=== PATIENT | female | born 1965 | race Caucasian/White ===

== ENCOUNTER 2016-11-26 08:29 | Emergency (ER) | payer BC ==
[~2016-11-26] VITALS: Ht 172.7 cm; Wt 68.0 kg
[2016-11-26] VITALS (7 sets, daily range): BP systolic 74–151; BP diastolic 41–90
[~2016-11-26 08:29] MED LIST: AMBIEN10 MG PO; NKM; ONDANSETRON ODT4 MG PO; PREVACID30 MG PO; RANITIDINE HCL150 MG PO; XANAX1 MG PO
[2016-11-26] MEDS ORDERED: Famotidine 20 MG/ 2ML VIAL IVP ONE (08:45)
[2016-11-26] MEDS ORDERED: HYDROmorphone 1mg/ml Carpuject IVP ONE ×2 (08:45→09:30)
[2016-11-26] MEDS ORDERED: LORazepam Inj 2mg/ml 1ml IV ONE (08:45)
[2016-11-26 08:54] LABS: BASOPHILS % (AUTO) 0.5 % (0.0-2.0); EOSINOPHILS % (AUTO) 0.3 % (0.0-3.0); MEAN CORPUSCULAR HEMOGLOBIN 32.7 PG (27.0-31.0); MEAN CORPUSCULAR HGB CONC 33.8 G/DL (32.0-36.0); MEAN CORPUSCULAR VOLUME 97 FL (80-99); MEAN PLATELET VOLUME 8.2 FL (6.5-10.1); MONOCYTES % (AUTO) 4.8 % (1.0-10.0); NEUTROPHILS % (AUTO) 83.3 % (45.0-75.0); PLATELET COUNT 308 K/UL (150-450); RED BLOOD COUNT 5.15 M/UL (4.20-5.40); RED CELL DISTRIBUTION WIDTH 10.9 % (11.6-14.8); WHITE BLOOD COUNT 11.2 K/UL (4.8-10.8)
[2016-11-26 10:04] LABS: ALANINE AMINOTRANSFERASE 13 U/L (3-33); ALBUMIN/GLOBULIN RATIO 1.9 (1.0-2.7); ANION GAP 15 (5-15); ASPARTATE AMINO TRANSFERASE 22 U/L (5-40); CALCIUM 8.9 mg/dL (8.6-10.2); CARBON DIOXIDE 25 mEQ/L (20-30); CHLORIDE 96 mEQ/L (98-107); CREATININE 0.7 mg/dL (0.5-0.9); GLOMERULAR FILTRATION RATE > 60 mL/min (>60); HEMOLYSIS 5; LIPASE 37 U/L (< 60); POTASSIUM 3.1 mEQ/L (3.4-4.9); SODIUM 136 mEQ/L (135-145); TOTAL PROTEIN 6.7 g/dL (6.6-8.7)
[2016-11-26] MEDS ORDERED: AMBIEN5 MG ORAL (12:09)
[2016-11-26] MEDS ORDERED: ZOFRAN ODT4 MG ORAL (12:09)
[2016-11-26] MEDS ORDERED: RANITIDINE HCL150 MG ORAL (12:09)
--- NOTE | 2016-11-27 07:19 | Emergency Room Report ---
History of Present Illness General Chief Complaint: Abdominal Pain Source: Patient Present Illness HPI 51-year-old female presents to ED with abdominal pain and nausea and vomiting x1 day. 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 States that her symptoms are triggered by stress and anxiety. Patient states the pain is a 10 out of 10, cramping, nonradiating. Notes nausea and vomiting. Denies diarrhea. Denies fevers or chills. Denies chest pain or shortness of breath. No other aggravating relieving factors. Denies any other associated symptoms Allergies: Coded Allergies: PENICILLINS (Verified Allergy, 06/23/12) UNKNOWN Patient History Past Medical History: other - IBS Past Surgical History: none Pertinent Family History: none Social History: Denies: alcohol use, drug use, smoking Last Menstrual Period: n/a Now: No Immunizations: UTD Reviewed Nursing Documentation: PMH: Agreed, PSxH: Agreed Nursing Documentation-PMH Past Medical History: No History, Except For Hx Cancer: No Hx Gastrointestinal Problems: Yes Hx Neurological Problems: No Hx Meningitis: Yes - BACTERIAL, APPROX 15 YEARS AGO Review of Systems All Other Systems: negative except mentioned in HPI Physical Exam Vital Signs Date Time Temp Pulse Resp B/P Pulse Ox O2 Delivery O2 Flow Rate FiO2 11/26/16 08:36 97.7 85 20 178/112 96 Room Air Sp02 EP Interpretation: reviewed, normal General Appearance: alert, GCS 15, non-toxic, moderate distress Head: normocephalic, atraumatic Eyes: bilateral eye PERRL, bilateral eye normal inspection ENT: hearing grossly normal, normal pharynx, no angioedema, normal voice Neck: full range of motion, supple/symm/no masses Respiratory: chest non-tender, lungs clear, normal breath sounds, speaking full sentences Cardiovascular #1: regular rate, rhythm, no edema Cardiovascular #2: 2+ carotid (R), 2+ carotid (L), 2+ radial (R), 2+ radial (L) , 2+ dorsalis pedis (R), 2+ dorsalis pedis (L) Gastrointestinal: normal bowel sounds, soft, non-distended, no guarding, no rebound, tenderness Rectal: deferred Genitourinary: normal inspection, no CVA tenderness Musculoskeletal: back normal, gait/station normal, normal range of motion, non- tender Neurologic: alert, oriented x3, responsive, motor strength/tone normal, sensory intact, speech normal Psychiatric: judgement/insight normal, memory normal, mood/affect normal, no suicidal/homicidal ideation Reflexes: 3+ bicep (R), 3+ bicep (L), 3+ tricep (R), 3+ tricep (L), 3+ knee (R) , 3+ knee (L) Skin: normal color, no rash, warm/dry, well hydrated Lymphatic: no adenopathy Medical Decision Making Diagnostic Impression: Primary Impression: Abdominal pain Qualified Codes: R10.84 - Generalized abdominal pain Additional Impressions: Visceral hypersensitivity syndrome Opioid dependence Qualified Codes: F11.29 - Opioid dependence with unspecified opioid-induced disorder ER Course Hospital Course 51-year-old F presents to ED with epigastric pain with N/V. differential diagnosis: gastritis, SBO, cholecystits Clinical course Patient placed on stretcher. On consumer marketing analyst. After initial history and physical I ordered labs, IV fluids, Zofran and pepcid, and dilaudid Labs - no leukocytosis, K 3.1, LFTs normal, UA unremarkable Patient on reassessment was hypotensive after pain medications. Required additional IV fluid boluses to bring her blood pressure. Patient required 2 rounds of pain medication. Requesting a third dose. Patient given multiple rounds of Zofran. Potassium repleted I explained to the patient I am uncomfortable finding her with additional pain medication. If she requires such that she will need to be admitted. Patient declined admission On CURES patient has multiple narcotic prescriptions filled. Patient has not been to the [facility] in many years I feel this is a highly complex case requiring extensive working including EKG/ Rhythm strip, Xray/CT/US, Blood/urine lab work, repeat exams while in ED, and administration of strong opiates/narcotics for pain control, admission to hospital or close patient follow up. Diagnosis - abdominal pain, visceral hypersensitivity syndrome, opioid dependence Stable and discharged to home with prescriptions for zantac, zofran, ambien. Followup with PMD. Return to ED if symptoms recur or worsen Labs Test 11/26/16 08:40 11/26/16 09:35 White Blood Count 11.2 K/UL (4.8-10.8) Red Blood Count 5.15 M/UL (4.20-5.40) Hemoglobin 16.8 G/DL (12.0-16.0) Hematocrit 49.8 % (37.0-47.0) Mean Corpuscular Volume 97 FL (80-99) Mean Corpuscular Hemoglobin 32.7 PG (27.0-31.0) Mean Corpuscular Hemoglobin Concent 33.8 G/DL (32.0-36.0) Red Cell Distribution Width 10.9 % (11.6-14.8) Platelet Count 308 K/UL (150-450) Mean Platelet Volume 8.2 FL (6.5-10.1) Neutrophils (%) (Auto) 83.3 % (45.0-75.0) Lymphocytes (%) (Auto) 11.0 % (20.0-45.0) Monocytes (%) (Auto) 4.8 % (1.0-10.0) Eosinophils (%) (Auto) 0.3 % (0.0-3.0) Basophils (%) (Auto) 0.5 % (0.0-2.0) Sodium Level 136 mEQ/L (135-145) Potassium Level 3.1 mEQ/L (3.4-4.9) Chloride Level 96 mEQ/L (98-107) Carbon Dioxide Level 25 mEQ/L (20-30) Anion Gap 15 (5-15) Blood Urea Nitrogen 14 mg/dL (7-23) Creatinine 0.7 mg/dL (0.5-0.9) Estimat Glomerular Filtration Rate > 60 mL/min (>60) Glucose Level 124 mg/dL (74-106) Calcium Level 8.9 mg/dL (8.6-10.2) Total Bilirubin 0.9 mg/dL (0.0-1.2) Aspartate Amino Transf (AST/SGOT) 22 U/L (5-40) Alanine Aminotransferase (ALT/SGPT) 13 U/L (3-33) Alkaline Phosphatase 31 U/L (35-104) Total Protein 6.7 g/dL (6.6-8.7) Albumin 4.4 g/dL (3.5-5.2) Globulin 2.3 g/dL Albumin/Globulin Ratio 1.9 (1.0-2.7) Lipase 37 U/L (< 60) Last Vital Signs Date Time Temp Pulse Resp B/P Pulse Ox O2 Delivery O2 Flow Rate FiO2 5/24/17 12:22 98.6 69 14 95/66 98 Room Air Status: improved Disposition: HOME, SELF-CARE Condition: Stable Scripts Ranitidine Hcl* (ZANTAC*) 150 Mg Tablet 150 MG ORAL TWICE A DAY, #30 TAB Prov: ERIKA ALFONSO M.D. 11/26/16 Zolpidem Tartrate* (AMBIEN*) 5 Mg Tablet 5 MG ORAL BEDTIME Y for Insomnia for 10 Days, TAB Prov: ERKIA ALFONSO M.D. 11/26/16 Ondansetron Odt* (ZOFRAN ODT*) 4 Mg Tab.rapdis 4 MG ORAL Q6H Y for Nausea & Vomiting, #30 TAB 0 Refills Prov: ERIKA ALFONSO M.D. 11/26/16 Patient Instructions: Irritable Bowel Syndrome, Adult ERIKA ALFONSO M.D. November 27, 2016 07:19
== END 2016-11-26 12:20 | disposition home or self-care (01) ==
LOC: EMR 08:48
DX: R10.9 Unspecified abdominal pain (principal); F11.20 Opioid dependence, uncomplicated; I95.2 Hypotension due to drugs; T50.995A Adverse effect of other drugs, medicaments and biological substances, initial encounter; Y92.89 Other specified places as the place of occurrence of the external cause; R11.2 Nausea with vomiting, unspecified; Z86.61 Personal history of infections of the central nervous system
CPT/HCPCS: 36415; 80053; 83690; 85025; 96360; 96361; 96374; 96375; 99284; J1170; J2405; S0028; J8499

== ENCOUNTER 2017-01-27 00:55 | Emergency (ER) | payer BC ==
[~2017-01-27] VITALS: Ht 170.2 cm; Wt 70.3 kg
[~2017-01-27 00:55] MED LIST changes: +AMBIEN5 MG ORAL; +RANITIDINE HCL150 MG ORAL; +ZOFRAN ODT4 MG ORAL
[2017-01-27 01:10] VITALS: BP 128/80
[2017-01-27] MEDS ORDERED: NORCO 5-325 TA1 EACH ORAL (01:52)
[2017-01-27 02:00] VITALS: BP 120/82
[2017-01-27] MEDS ORDERED: Norco 5mg/325mg tab ORAL ONE (02:00)
--- NOTE | 2017-01-27 10:52 | Diagnostic Imaging Report ---
Indication: PAIN Technique: 3 views of the left ankle Comparison: none Findings: No acute fractures. No dislocations. Joint spaces are preserved. Impression: Negative This agrees with the preliminary interpretation provided by the emergency room physician
--- NOTE | 2017-01-27 11:57 | Diagnostic Imaging Report ---
Indication: PAIN STATUS post fall Technique: 3 views left foot Comparison: none Findings: No acute fractures. No dislocations. Joint spaces are preserved. Impression: Negative This agrees with the preliminary interpretation provided by the emergency room physician
--- NOTE | 2017-01-29 14:27 | Emergency Room Report ---
History of Present Illness General Chief Complaint: Lower Extremity Injury Present Illness HPI Is a 52-year-old female presented after increased right ankle pain after a recent fall. Patient reports having increased pain and swelling to right ankle and foot. Patient had prior history of chronic pain. Patient stated that she been having increased pain to her right lower extremity. Patient denies any fever. She denied any numbness. The patient stated that the injury occurred yesterday. Allergies: Coded Allergies: PENICILLINS (Verified Allergy, 06/23/12) UNKNOWN Patient History Past Medical History: see triage record Reviewed Nursing Documentation: PMH: Agreed, PSxH: Agreed Nursing Documentation-PMH Hx Cancer: No Hx Gastrointestinal Problems: Yes Hx Neurological Problems: No Hx Meningitis: Yes - BACTERIAL, APPROX 15 YEARS AGO Review of Systems All Other Systems: negative except mentioned in HPI Physical Exam Vital Signs Date Time Temp Pulse Resp B/P Pulse Ox O2 Delivery O2 Flow Rate FiO2 01/27/17 00:58 98.1 95 16 128/80 97 Room Air General Appearance: well appearing, no apparent distress, alert, GCS 15, Chronically Ill Head: normocephalic, atraumatic ENT: hearing grossly normal, normal voice Neck: full range of motion, supple Respiratory: no respiratory distress, speaking full sentences Gastrointestinal: normal inspection Musculoskeletal: no calf tenderness, swelling - right foot, Neurologic: alert, oriented x3, responsive, director auto III-XII nml as tested, normal gait Psychiatric: mood/affect normal Skin: no rash Medical Decision Making Diagnostic Impression: Primary Impression: Ankle sprain ER Course Patient presented for ankle pain. Differential diagnosis included was not limited to sprain, fracture, dislocation, cellulitis, vascular insufficiency. X -ray imaging of the ankle was ordered. X-ray imaging 3 view interpreted by me showed normal bony alignment without evident fracture, soft tissue swelling was noted.The patient given prescription for pain medication. She is placed in an Eduin wrap.The CURES database was reviewed for the patient's prior prescription history.Is was given prescription for short-term narcotic pain medication due to severe pain. The patient is advised to follow up with primary care doctor in 1-2 days. Patient is advised to return if any worsening condition or if any changes in status that are concerning. Last Vital Signs Date Time Temp Pulse Resp B/P Pulse Ox O2 Delivery O2 Flow Rate FiO2 01/27/17 02:00 98.2 89 15 120/82 100 Room Air Status: improved Disposition: HOME, SELF-CARE Condition: Stable Scripts Hydrocodone Bit/Acetaminophen 5-325* (NORCO 5-325*) 1 Each Tablet 1 TAB ORAL Q6H Y for For Pain, #15 TAB 0 Refills Prov: Hernán Dunn 01/27/17 Patient Instructions: Ankle Sprain Hernán Dunn Jan 29, 2017 14:27
== END 2017-01-27 02:00 | disposition home or self-care (01) ==
LOC: EMR 01:27
DX: S93.401A Sprain of unspecified ligament of right ankle, initial encounter (principal); W19.XXXA Unspecified fall, initial encounter; Y93.9 Activity, unspecified; Y92.9 Unspecified place or not applicable; Z88.0 Allergy status to penicillin
CPT/HCPCS: 99284

== ENCOUNTER 2017-07-27 12:28 | Emergency (ER) | payer BC ==
[~2017-07-27] VITALS: Ht 172.7 cm; Wt 72.6 kg
[~2017-07-27 12:28] MED LIST changes: +NORCO 5-325 TA1 EACH ORAL
[2017-07-27] MEDS ORDERED: HYDROmorphone 1mg/ml Carpuject IVP ONE (13:15)
[2017-07-27 13:55] LABS: BASOPHILS % (AUTO) 0.6 % (0.0-2.0); EOSINOPHILS % (AUTO) 0.7 % (0.0-3.0); HEMATOCRIT 44.8 % (37.0-47.0); HEMOGLOBIN 14.9 G/DL (12.0-16.0); LYMPHOCYTES % (AUTO) 14.8 % (20.0-45.0); MEAN CORPUSCULAR VOLUME 96 FL (80-99); MONOCYTES % (AUTO) 9.9 % (1.0-10.0); PLATELET COUNT 233 K/UL (150-450); RED BLOOD COUNT 4.65 M/UL (4.20-5.40); RED CELL DISTRIBUTION WIDTH 10.7 % (11.6-14.8); WHITE BLOOD COUNT 8.5 K/UL (4.8-10.8)
[2017-07-27 14:00] LABS: ANION GAP 9 mmol/L (5-15); BLOOD UREA NITROGEN 10 mg/dL (7-18); CALCIUM 9.2 MG/DL (8.5-10.1); CARBON DIOXIDE 30 MMOL/L (21-32); CHLORIDE 96 MMOL/L (98-107); CREATININE 0.7 MG/DL (0.55-1.30); POTASSIUM 2.8 MMOL/L (3.5-5.1); SODIUM 135 MMOL/L (136-145)
[2017-07-27 14:13] LABS: ALANINE AMINOTRANSFERASE 25 U/L (12-78); ALBUMIN/GLOBULIN RATIO 1.3 (1.0-2.7); ALKALINE PHOSPHATASE 44 U/L (46-116); ASPARTATE AMINO TRANSFERASE 17 U/L (15-37); BILIRUBIN,TOTAL 1.2 MG/DL (0.2-1.0)
[2017-07-27 14:14] LABS: BILIRUBIN,DIRECT 0.3 MG/DL (0.0-0.3)
--- NOTE | 2017-07-27 14:50 | Diagnostic Imaging Report ---
Indication: Reason For Exam: H/A Technique: Continuous helical CT scanning of the head was performed without intravenous contrast material. Axial and coronal 5 mm sections were generated. Radiation dose was minimized using automated exposure control Dose: Total Dose Length Product - DLP 1425.[address] Dose Index - CTDIvol(s) 70.38 mGy. Comparison: None Findings: The ventricular system is normal in size and configuration. There is no shift of midline structures. No abnormal extra-axial fluid collections are noted. There is no evidence of intracerebral bleeding. No other abnormal high or low density areas are noted within the brain. There is no depressed calvarial fracture. No focal soft tissue swelling/scalp hematoma is identified. The mastoid air cells and visualized paranasal sinuses are clear. Imaged portions of the orbits are grossly unremarkable. Impression: No evidence of acute intracranial hemorrhage, mass effect or cortical edema. MRI may be obtained for more sensitive evaluation as clinically indicated. The CT scanner at [facility] is accredited by the [employer] and the scans are performed using protocols designed to limit radiation exposure to as low as reasonably achievable to attain images of sufficient resolution adequate for diagnostic evaluation.
--- NOTE | 2017-07-27 14:52 | Diagnostic Imaging Report ---
Indication: Weakness Technique: XRAY Chest 1v Comparison: 06/25/2012 Findings: Heart size and mediastinal contours are within normal limits given technique. There is no focal consolidation, pneumothorax or pleural effusion. Osseous structures demonstrate no acute abnormality. Impression: No radiographic evidence of acute cardiopulmonary disease.
[2017-07-27] MEDS ORDERED: Norco 5mg/325mg tab ORAL ONE (15:00)
[2017-07-27 15:24] VITALS: BP 93/58
[2017-07-27 15:37] LABS: APPEARANCE,URINE CLEAR; BILIRUBIN, URINE NEGATIVE (NEGATIVE); COLOR,URINE PALE YELLOW; GLUCOSE, URINE (UA) NEGATIVE (NEGATIVE); KETONES,URINE NEGATIVE (NEGATIVE); LEUKOCYTE ESTERASE ,URINE NEGATIVE (NEGATIVE); NITRITE,URINE NEGATIVE (NEGATIVE); PH,URINE 6.5 (4.5-8.0); PROTEIN,URINE NEGATIVE (NEGATIVE); UROBILINOGEN,URINE NORMAL MG/DL (0.0-1.0)
[2017-07-27] MEDS ORDERED: TAMIFLU75 MG ORAL (15:45)
[2017-07-27 15:58] VITALS: BP 104/78
--- NOTE | 2017-07-27 16:32 | Emergency Room Report ---
History of Present Illness General Chief Complaint: Generalized Weakness Source: Patient Present Illness HPI 52-year-old female presents ED for evaluation. at bedside states that patient has not been feeling well for the last several days. Has bodyaches, chills, feels very weak. Feels constipated. Patient states she's been taking opioids for several months now because of a foot fracture requiring surgery. Patient also has history of hypersensitivity visceral syndrome. c/o headache, nausea. Denies fevers or chills. Denies chest pain shortness of breath. Denies cough. Denies sick contacts recent travel. No other aggravating relieving factors. Denies any other associated Allergies: Coded Allergies: PENICILLINS (Verified Allergy, 06/23/12) UNKNOWN Patient History Past Medical History: other - hypersensitivty visceral syndrome Past Surgical History: none Pertinent Family History: none Social History: Denies: smoking, alcohol use, drug use Now: No Immunizations: UTD Reviewed Nursing Documentation: PMH: Agreed, PSxH: Agreed Nursing Documentation-PMH Past Medical History: No History, Except For Hx Cancer: No Hx Gastrointestinal Problems: Yes Hx Neurological Problems: No Hx Meningitis: Yes - BACTERIAL, APPROX 15 YEARS AGO Review of Systems All Other Systems: negative except mentioned in HPI Physical Exam Vital Signs Date Time Temp Pulse Resp B/P (MAP) Pulse Ox O2 Delivery O2 Flow Rate FiO2 07/27/17 12:40 98.2 78 18 134/90 97 Room Air Sp02 EP Interpretation: reviewed, normal General Appearance: no apparent distress, alert, GCS 15, non-toxic Head: normocephalic, atraumatic Eyes: bilateral eye normal inspection, bilateral eye PERRL ENT: hearing grossly normal, normal pharynx, no angioedema, normal voice Neck: full range of motion, supple, no meningismus, supple/symm/no masses Respiratory: chest non-tender, lungs clear, normal breath sounds, speaking full sentences Cardiovascular #1: regular rate, rhythm, no edema Cardiovascular #2: 2+ carotid (R), 2+ carotid (L), 2+ radial (R), 2+ radial (L) , 2+ dorsalis pedis (R), 2+ dorsalis pedis (L) Gastrointestinal: normal bowel sounds, non tender, soft, non-distended, no guarding, no rebound Rectal: deferred Genitourinary: normal inspection, no CVA tenderness Musculoskeletal: back normal, gait/station normal, normal range of motion, non- tender Neurologic: alert, oriented x3, responsive, motor strength/tone normal, sensory intact, speech normal Psychiatric: judgement/insight normal, memory normal, mood/affect normal, no suicidal/homicidal ideation Reflexes: 3+ bicep (R), 3+ bicep (L), 3+ tricep (R), 3+ tricep (L), 3+ knee (R) , 3+ knee (L) Skin: normal color, no rash, warm/dry, well hydrated Lymphatic: no adenopathy Medical Decision Making Diagnostic Impression: Primary Impression: Episode of generalized weakness Additional Impressions: Opioid dependence Qualified Codes: F11.29 - Opioid dependence with unspecified opioid-induced disorder Visceral hypersensitivity syndrome ER Course Hospital Course 52-year-old female presents to ED complaining of bodyaches, weakness, headache Differential diagnoses include: sepsis, UTI, dehydration, influenza Clinical course Patient placed on stretcher. After initial history, physical exam reveals middle aged female in no acute distress. Bilateral TM unremarkable. No pharyngeal erythema. No tonsillar exudates. No lymphadenopathy. lungs clear. I ordered labs, IV fluids, chest x-ray, pain meds, CT head Labs reviewed-no leukocytosis, hemoglobin/hematocrit stable, K 2.8, UA negative , influenza negative Chest x-ray unremarkable Patient was seen here previously for similar presentation. Patient has high opioid requirements. Previous CURES shows extensive narcotic use. I explained to patient that she is likely experiencing opioid induced constipation. Medications like Colace and magnesium citrate and enemas are not effective. need to discuss with PMD medications specifically for opioid induced constipation Patient appears to be in no distress. Speaking comfortably with . However is asking for more pain medications. I explained to patient that I cannot provide additional pain medication here nor can i provide prescriptions Diagnosis - weakness, opioid dependence, viesceral hypersensitivty syndrome Stable and discharged home. Instructed to followup with PMD. Return to ED if symptoms recur or worsen Labs Test 07/27/17 13:40 07/27/17 15:20 White Blood Count 8.5 K/UL (4.8-10.8) Red Blood Count 4.65 M/UL (4.20-5.40) Hemoglobin 14.9 G/DL (12.0-16.0) Hematocrit 44.8 % (37.0-47.0) Mean Corpuscular Volume 96 FL (80-99) Mean Corpuscular Hemoglobin 32.0 PG (27.0-31.0) Mean Corpuscular Hemoglobin Concent 33.2 G/DL (32.0-36.0) Red Cell Distribution Width 10.7 % (11.6-14.8) Platelet Count 233 K/UL (150-450) Mean Platelet Volume 8.6 FL (6.5-10.1) Neutrophils (%) (Auto) 74.0 % (45.0-75.0) Lymphocytes (%) (Auto) 14.8 % (20.0-45.0) Monocytes (%) (Auto) 9.9 % (1.0-10.0) Eosinophils (%) (Auto) 0.7 % (0.0-3.0) Basophils (%) (Auto) 0.6 % (0.0-2.0) Sodium Level 135 MMOL/L (136-145) Potassium Level 2.8 MMOL/L (3.5-5.1) Chloride Level 96 MMOL/L (98-107) Carbon Dioxide Level 30 MMOL/L (21-32) Anion Gap 9 mmol/L (5-15) Blood Urea Nitrogen 10 mg/dL (7-18) Creatinine 0.7 MG/DL (0.55-1.30) Estimat Glomerular Filtration Rate > 60 mL/min (>60) Glucose Level 102 MG/DL (74-106) Lactic Acid Level 0.90 mmol/L (0.66-2.22) Calcium Level 9.2 MG/DL (8.5-10.1) Total Bilirubin 1.2 MG/DL (0.2-1.0) Direct Bilirubin 0.3 MG/DL (0.0-0.3) Aspartate Amino Transf (AST/SGOT) 17 U/L (15-37) Alanine Aminotransferase (ALT/SGPT) 25 U/L (12-78) Alkaline Phosphatase 44 U/L (46-116) Total Protein 7.2 G/DL (6.4-8.2) Albumin 4.0 G/DL (3.4-5.0) Globulin 3.2 g/dL Albumin/Globulin Ratio 1.3 (1.0-2.7) Urine Color Pale yellow Urine Appearance Clear Urine pH 6.5 (4.5-8.0) Urine Specific White 1.005 (1.005-1.035) Urine Protein Negative (NEGATIVE) Urine Glucose (UA) Negative (NEGATIVE) Urine Ketones Negative (NEGATIVE) Urine Occult Blood Negative (NEGATIVE) Urine Nitrite Negative (NEGATIVE) Urine Bilirubin Negative (NEGATIVE) Urine Urobilinogen Normal MG/DL (0.0-1.0) Urine Leukocyte Esterase Negative (NEGATIVE) Chest X-Ray Diagnostic Results Chest X-Ray Diagnostic Results : Chest X-Ray Ordered: Yes # of Views/Limited/Complete: 1 View Indication: Other - weakness EP Interpretation: Yes Interpretation: no consolidation, no effusion, no pneumothorax, no acute cardiopulmonary disease Impression: No acute disease Electronically Signed by: Electronically signed by Gary Burt MD Last Vital Signs Date Time Temp Pulse Resp B/P (MAP) Pulse Ox O2 Delivery O2 Flow Rate FiO2 07/27/17 15:58 68 15 104/78 98 Room Air 07/27/17 15:24 98.4 Status: improved Disposition: HOME, SELF-CARE Condition: Stable Scripts Oseltamivir Phosphate (Tamiflu) 75 Mg Capsule 75 MG ORAL TWICE A DAY for 5 Days, CAP Prov: GARY BURT M.D. 07/27/17 Referrals: NOT CHOSEN IPA/,REFERRING (PCP) Patient Instructions: Influenza, Adult, [id number] GARY BURT M.D. Jul 27, 2017 16:32
== END 2017-07-27 16:02 | disposition home or self-care (01) ==
LOC: EMR 13:25
DX: R53.1 Weakness (principal); F11.20 Opioid dependence, uncomplicated; R51 Headache; Z88.0 Allergy status to penicillin
CPT/HCPCS: 36415; 70450; 71045; 80053; 81003; 82248; 83605; 85025; 86710; 96361; 96374; 96375; 99284; J1170; J2405

== ENCOUNTER 2017-07-28 20:04 | Inpatient (IN) | payer BC ==
[~2017-07-28] VITALS: Ht 172.7 cm; Wt 75.7 kg
[~2017-07-28 20:04] MED LIST changes: +TAMIFLU75 MG ORAL
[2017-07-28 20:20] VITALS: BP 168/89
[2017-07-28] MEDS ORDERED: Fleet's Enema 133ml RECTAL ONE (20:30)
--- NOTE | 2017-07-28 20:35 | Emergency Room Report ---
History of Present Illness General Chief Complaint: Abdominal Pain Source: Patient, Significant Other (ERIKA ALFONSO M.D.) Present Illness HPI 52-year-old female presents to ED for evaluation. Patient presents with abdominal pain and vomiting. Pain is a 10 out of 10, sharp, nonradiating. Patient states she is constipated and needs to have a bowel movement. Patient has been here in the past. Has history of hypersensitivity this will syndrome. Is taking chronic opioid medications for the last several months. Patient was seen here yesterday with weakness and abdominal pain and constipation. Patient was subsequently discharged. Patient was told by PMD today to come to the hospital and get admitted until she has a bowel movement. Patient notes multiple episodes of vomiting. Denies fevers or chills. Denies chest pain. No other aggravating or leading factors. Denies any other associated symptoms (ERIKA ALFONSO M.D.) Allergies: Coded Allergies: PENICILLINS (Verified Allergy, 06/23/12) UNKNOWN Patient History Past Medical History: other - hypersensitivity visceral syndrome Past Surgical History: none Pertinent Family History: none Social History: Denies: smoking, alcohol use, drug use Now: No Immunizations: UTD Reviewed Nursing Documentation: PMH: Agreed, PSxH: Agreed (ERIKA ALFONSO M.D.) Nursing Documentation-PMH Hx Cancer: No Hx Gastrointestinal Problems: Yes Hx Neurological Problems: No Hx Meningitis: Yes - BACTERIAL, APPROX 15 YEARS AGO (ERIKA ALFONSO M.D.) Review of Systems All Other Systems: negative except mentioned in HPI (ERIKA ALFONSO M.D.) Physical Exam Vital Signs Date Time Temp Pulse Resp B/P (MAP) Pulse Ox O2 Delivery O2 Flow Rate FiO2 07/28/17 20:06 98.8 64 18 168/89 96 Room Air Sp02 EP Interpretation: reviewed, normal General Appearance: alert, GCS 15, non-toxic, mild distress Head: normocephalic, atraumatic Eyes: bilateral eye normal inspection, bilateral eye PERRL ENT: hearing grossly normal, normal pharynx, no angioedema, normal voice Neck: full range of motion, supple/symm/no masses Respiratory: chest non-tender, lungs clear, normal breath sounds, speaking full sentences Cardiovascular #1: regular rate, rhythm, no edema Cardiovascular #2: 2+ carotid (R), 2+ carotid (L), 2+ radial (R), 2+ radial (L) , 2+ dorsalis pedis (R), 2+ dorsalis pedis (L) Gastrointestinal: normal bowel sounds, soft, no guarding, no rebound, tenderness Rectal: deferred Genitourinary: normal inspection, no CVA tenderness Musculoskeletal: back normal, gait/station normal, normal range of motion, non- tender Neurologic: alert, oriented x3, responsive, motor strength/tone normal, sensory intact, speech normal Psychiatric: judgement/insight normal, memory normal, anxious Reflexes: 3+ bicep (R), 3+ bicep (L), 3+ tricep (R), 3+ tricep (L), 3+ knee (R) , 3+ knee (L) Skin: normal color, no rash, warm/dry, well hydrated Lymphatic: no adenopathy (ERIKA ALFONSO M.D.) Medical Decision Making Diagnostic Impression: Primary Impression: Visceral hypersensitivity syndrome Additional Impressions: Opioid dependence Qualified Codes: F11.288 - Opioid dependence with other opioid-induced disorder Hypokalemia ER Course See above. Patient c/o pain. Toradol and ativan ordered. K is low. Potassium ordered IV. Patient presented to Dr. Emmanuel. Admit Med. Laboratory Tests Test 07/28/17 20:30 White Blood Count 8.7 K/UL (4.8-10.8) Red Blood Count 4.18 M/UL (4.20-5.40) L Hemoglobin 13.5 G/DL (12.0-16.0) Hematocrit 40.1 % (37.0-47.0) Mean Corpuscular Volume 96 FL (80-99) Mean Corpuscular Hemoglobin 32.2 PG (27.0-31.0) H Mean Corpuscular Hemoglobin Concent 33.6 G/DL (32.0-36.0) Red Cell Distribution Width 10.5 % (11.6-14.8) L Platelet Count 212 K/UL (150-450) Mean Platelet Volume 8.9 FL (6.5-10.1) Neutrophils (%) (Auto) 80.9 % (45.0-75.0) H Lymphocytes (%) (Auto) 10.7 % (20.0-45.0) L Monocytes (%) (Auto) 7.2 % (1.0-10.0) Eosinophils (%) (Auto) 0.6 % (0.0-3.0) Basophils (%) (Auto) 0.6 % (0.0-2.0) Sodium Level 137 MMOL/L (136-145) Potassium Level 3.0 MMOL/L (3.5-5.1) L Chloride Level 98 MMOL/L (98-107) Carbon Dioxide Level 28 MMOL/L (21-32) Anion Gap 11 mmol/L (5-15) Blood Urea Nitrogen 6 mg/dL (7-18) L Creatinine 0.8 MG/DL (0.55-1.30) Estimate Glomerular Filtration Rate > 60 mL/min (>60) Glucose Level 98 MG/DL (74-106) Calcium Level 8.7 MG/DL (8.5-10.1) Total Bilirubin 1.1 MG/DL (0.2-1.0) H Direct Bilirubin 0.3 MG/DL (0.0-0.3) Aspartate Amino Transferase (AST) 16 U/L (15-37) Alanine Aminotransferase (ALT) 18 U/L (12-78) Alkaline Phosphatase 46 U/L (46-116) Total Protein 7.0 G/DL (6.4-8.2) Albumin 3.9 G/DL (3.4-5.0) Globulin 3.1 g/dL Albumin/Globulin Ratio 1.3 (1.0-2.7) Lipase 102 U/L (73-393) (Antonio Lieberman M.D.) Last Vital Signs Date Time Temp Pulse Resp B/P (MAP) Pulse Ox O2 Delivery O2 Flow Rate FiO2 07/28/17 20:06 98.8 64 18 168/89 96 Room Air (ERIKA ALFONSO M.D.) Status: improved (Antonoi Lieberman M.D.) Condition: Serious ERIKA ALFONSO M.D. Jul 28, 2017 20:35 Antonio Lieberman M.D. Jul 28, 2017 21:46
[2017-07-28 20:50] LABS: BASOPHILS % (AUTO) 0.6 % (0.0-2.0); EOSINOPHILS % (AUTO) 0.6 % (0.0-3.0); HEMATOCRIT 40.1 % (37.0-47.0); HEMOGLOBIN 13.5 G/DL (12.0-16.0); LYMPHOCYTES % (AUTO) 10.7 % (20.0-45.0); MEAN CORPUSCULAR VOLUME 96 FL (80-99); MONOCYTES % (AUTO) 7.2 % (1.0-10.0); NEUTROPHILS % (AUTO) 80.9 % (45.0-75.0); PLATELET COUNT 212 K/UL (150-450); RED BLOOD COUNT 4.18 M/UL (4.20-5.40); RED CELL DISTRIBUTION WIDTH 10.5 % (11.6-14.8); WHITE BLOOD COUNT 8.7 K/UL (4.8-10.8)
[2017-07-28 20:58] LABS: ANION GAP 11 mmol/L (5-15); BLOOD UREA NITROGEN 6 mg/dL (7-18); CALCIUM 8.7 MG/DL (8.5-10.1); CARBON DIOXIDE 28 MMOL/L (21-32); CHLORIDE 98 MMOL/L (98-107); CREATININE 0.8 MG/DL (0.55-1.30); SODIUM 137 MMOL/L (136-145)
[2017-07-28 21:10] LABS: ALANINE AMINOTRANSFERASE 18 U/L (12-78); ALBUMIN 3.9 G/DL (3.4-5.0); ALBUMIN/GLOBULIN RATIO 1.3 (1.0-2.7); ALKALINE PHOSPHATASE 46 U/L (46-116); ASPARTATE AMINO TRANSFERASE 16 U/L (15-37); BILIRUBIN,TOTAL 1.1 MG/DL (0.2-1.0)
[2017-07-28 21:11] LABS: BILIRUBIN,DIRECT 0.3 MG/DL (0.0-0.3)
[2017-07-28] MEDS ORDERED: LORazepam Inj 2mg/ml 1ml IV ONE (21:45)
[2017-07-28] MEDS ORDERED: D5W w/KCl 20mEq 1,000 ML IV SCH (21:45)
[2017-07-28] MEDS ORDERED: Ketorolac 30mg Inj IV ONE (21:45)
[2017-07-28] MEDS ORDERED: D5 1/2NS w/KCl 40meq 1000ml 1,000 ML IV SCH (22:00)
[2017-07-28 22:07] VITALS: BP 162/86
[2017-07-28] MEDS ORDERED: Norco 5mg/325mg tab ORAL PRN (23:00)
[2017-07-28] MEDS ORDERED: Zolpidem 5mg tab ORAL PRN (23:00)
[2017-07-28 23:59] VITALS: BP 177/102
[2017-07-29 00:28] VITALS: BP 154/88
[2017-07-29 04:00] VITALS: BP 106/82
[2017-07-29] MEDS: HYDROcodone/Acetamin 10/325 tab ORAL PRN ×2 (04:16→10:17)
[2017-07-29 07:55] LABS: BASOPHILS % (AUTO) 0.6 % (0.0-2.0); EOSINOPHILS % (AUTO) 0.5 % (0.0-3.0); HEMATOCRIT 38.2 % (37.0-47.0); LYMPHOCYTES % (AUTO) 16.3 % (20.0-45.0); MEAN CORPUSCULAR VOLUME 97 FL (80-99); MONOCYTES % (AUTO) 7.5 % (1.0-10.0); NEUTROPHILS % (AUTO) 75.1 % (45.0-75.0); PLATELET COUNT 223 K/UL (150-450); RED BLOOD COUNT 3.95 M/UL (4.20-5.40); RED CELL DISTRIBUTION WIDTH 10.2 % (11.6-14.8); WHITE BLOOD COUNT 5.1 K/UL (4.8-10.8)
[2017-07-29 08:00] VITALS: BP 99/52
[2017-07-29 08:36] LABS: ALANINE AMINOTRANSFERASE 15 U/L (12-78); ALBUMIN 3.6 G/DL (3.4-5.0); ALBUMIN/GLOBULIN RATIO 1.1 (1.0-2.7); ALKALINE PHOSPHATASE 42 U/L (46-116); AMYLASE 33 U/L (25-115); ANION GAP 12 mmol/L (5-15); ASPARTATE AMINO TRANSFERASE 17 U/L (15-37); BILIRUBIN,TOTAL 0.8 MG/DL (0.2-1.0); BLOOD UREA NITROGEN 3 mg/dL (7-18); CALCIUM 8.8 MG/DL (8.5-10.1); CARBON DIOXIDE 26 MMOL/L (21-32); CHLORIDE 101 MMOL/L (98-107); CREATININE 0.7 MG/DL (0.55-1.30); POTASSIUM 3.3 MMOL/L (3.5-5.1); SODIUM 139 MMOL/L (136-145)
[2017-07-29] MEDS ORDERED: Milk of Magnesia 30ml Ud ORAL PRN (09:30)
[2017-07-29 12:00] VITALS: BP 127/63
[2017-07-29] MEDS: HYDROmorphone 1mg/ml Carpuject IVP PRN ×3 (12:29→20:52)
[2017-07-29 16:00] VITALS: BP 108/71
[2017-07-29 19:57] VITALS: BP 100/59
[2017-07-29] MEDS ORDERED: Bisacodyl EC 5mg tab ORAL ONE (21:00)
[2017-07-29] MEDS ORDERED: Zolpidem 5mg tab ORAL PRN (21:00)
--- NOTE | 2017-07-29 22:00 | History and Physical Report ---
DATE OF ADMISSION: 07/28/2017 REASON FOR ADMISSION: Abdominal pain and constipation. HISTORY OF PRESENT ILLNESS: The patient is a 52-year-old female with history of psychiatric issues. The patient presents with abdominal pain and vomiting. The patient with significant constipation, has not had a recent bowel movement. The patient is opioid dependent and is taking Movantik. The patient has been in the emergency room in the past. The patient has been admitted for further care and management and further stabilization. PAST MEDICAL HISTORY: Notable for chronic pain, chronic opioid dependence, history of chronic constipation, and history of anxiety. 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 MEDICATIONS: Reviewed. ALLERGIES: Reviewed. SOCIAL HISTORY: The patient does not smoke or drink. She lives with her . REVIEW OF SYSTEMS: Notable for thyroid disease and viral meningitis. PHYSICAL EXAMINATION: GENERAL: A well-developed female, somewhat anxious and tearful. VITAL SIGNS: Blood pressure 127/63, pulse 60, respirations 19, and temperature 98.1 degrees. HEENT: Negative. NECK: Supple. LUNGS: Clear. CARDIAC: S1 and S2 regular rate and rhythm. ABDOMEN: Tender specifically in the left lower quadrant with what appears to be probable stool. EXTREMITIES: No cyanosis, clubbing, or edema. NEUROLOGIC: Grossly nonfocal. LABORATORY AND DIAGNOSTIC DATA: Lab data otherwise reviewed. IMPRESSION: 1. Obstipation. 2. Chronic opioid dependence. 3. Anxiety. 4. Possibly with mild dehydration. RECOMMENDATION: Resume medications, IV hydration, laxative, GI evaluation, pain control, and hope to discharge the patient when stable. Corbin Emmanuel M.D. DR: MAREK JOB#: [id number] CC:
[2017-07-30] MEDS ORDERED: Zolpidem 5mg tab ORAL ONE (01:00)
[2017-07-30] MEDS: HYDROmorphone 1mg/ml Carpuject IVP PRN ×6 (01:03→22:02)
[2017-07-30 04:00] VITALS: BP 127/69
[2017-07-30 08:00] VITALS: BP 118/69
--- NOTE | 2017-07-30 09:06 | General Progress Note ---
Assessment/Plan Assessment/Plan 1. Obstipation. 2. Chronic opioid dependence. 3. Anxiety. 4. Possibly with mild dehydration. PLAN dc home if agreeable gi evaluation pending has pain medications at home follow up with PMD Subjective Allergies: Coded Allergies: PENICILLINS (Verified Allergy, 06/23/12) UNKNOWN Subjective care noted had multiple BMs comfortable Objective Last 24 Hour Vital Signs Date Time Temp Pulse Resp B/P (MAP) Pulse Ox O2 Delivery O2 Flow Rate FiO2 07/30/17 08:00 99.0 69 20 118/69 98 07/30/17 05:22 98.6 07/30/17 04:00 98.8 67 18 127/69 98 Room Air 07/29/17 19:57 98.6 62 18 100/59 100 Room Air 07/29/17 16:00 97.2 54 19 108/71 99 07/29/17 12:00 98.1 60 19 127/63 97 Intake and Output 07/29/17 07/30/17 19:00 07:00 Intake Total 1280 ml 2200 ml Balance 1280 ml 2200 ml Intake Oral 480 ml 2000 ml IV Total 800 ml 200 ml # Voids 4 # Bowel Movements 1 3 Height (Feet): 5 Height (Inches): 8.00 Weight (Pounds): 167 Objective WDWN NAD clear breath sounds bilaterally without rhonchi or wheeze [id number] without MRG NABS nontender at this time no HSM no CCE nonfocal JENNIFER LOPEZ Jul 30, 2017 09:06
[2017-07-30] MEDS: LORazepam Inj 2mg/ml 1ml IV PRN (10:56)
[2017-07-30 12:00] VITALS: BP 116/73
--- NOTE | 2017-07-30 14:28 | Diagnostic Imaging Report ---
Indication: Constipation Technique: Supine view of the abdomen Comparison: 06/23/2012 Findings: There is evidence of prior spinal surgery again demonstrated. Bowel gas pattern is unremarkable. No unusual masses or calcifications. No definite radiographic evidence of significant stool retention is demonstrated Impression: No acute process
[2017-07-30 16:00] VITALS: BP 111/69
[2017-07-30] MEDS: Lactulose 20gm/30ml UDC ORAL SCH (18:47)
[2017-07-30 20:00] VITALS: BP 117/75
[2017-07-30] MEDS ORDERED: Zolpidem 5mg tab ORAL PRN (21:00)
--- NOTE | 2017-07-30 22:53 | General Progress Note ---
Assessment/Plan Assessment/Plan GI Consult Dictated Opioid induced constipation Good candidate for intermediate Movantik No stool impaction on rectal exam Had BM today with laxative OK for d/c from GI standpoint Advised to f/u for outpatient colonoscopy Thank you Anant Mathew MD Subjective Allergies: Coded Allergies: PENICILLINS (Verified Allergy, 06/23/12) UNKNOWN Objective Last 24 Hour Vital Signs Date Time Temp Pulse Resp B/P (MAP) Pulse Ox O2 Delivery O2 Flow Rate FiO2 07/30/17 16:00 98.6 68 20 111/69 95 07/30/17 12:00 99.9 73 20 116/73 97 07/30/17 08:00 99.0 69 20 118/69 98 07/30/17 05:22 98.6 07/30/17 04:00 98.8 67 18 127/69 98 Room Air Intake and Output 07/29/17 07/30/17 19:00 07:00 Intake Total 1280 ml 2200 ml Balance 1280 ml 2200 ml Intake Oral 480 ml 2000 ml IV Total 800 ml 200 ml # Voids 4 # Bowel Movements 1 3 Height (Feet): 5 Height (Inches): 8.00 Weight (Pounds): 167 ANANT MATHEW Jul 30, 2017 22:53
[2017-07-31] VITALS: BP 106/71
[2017-07-31] MEDS: LORazepam Inj 2mg/ml 1ml IV PRN ×3 (01:20→08:35)
--- NOTE | 2017-07-31 01:30 | Consultation ---
DATE OF CONSULTATION: 07/30/2017 GASTROENTEROLOGY CONSULTATION CONSULTING PHYSICIAN: Anant Mathew M.D. REFERRING PHYSICIAN: Corbin Emmanuel M.D. CHIEF COMPLAINT: I was asked to see this patient by Dr. Corbin Emmanuel for evaluation of constipation. HISTORY OF PRESENT ILLNESS: The patient is a 52-year-old white woman, who underwent two recent foot surgeries. She is now on high dose of the OxyContin for pain and she has developed constipation. She states she has not had a bowel movement for 10 days and appears uncomfortable. She was placed on the Movantik over the last few days with some samples as an outpatient, but this has not worked well yet. She was given enema without success. The suppository was given and a very small pebble-like bowel movement came out. She subsequently received some p.o. laxatives and half a cup of liquid material coming out of the rectum subsequent to that. The patient has had a previous history of narcotic-induced constipation. She says her last colonoscopy was about 5 years ago, and she had a polyp and was told to have another one in 5 years. PAST MEDICAL HISTORY: History of chronic pain, opioid dependence, constipation, anxiety, visceral hypersensitivity, and history of spinal meningitis x2. FAMILY HISTORY: Positive for cervical cancer in mother. SOCIAL HISTORY: The patient is . She has 1 son. She is not working. MEDICATIONS: See chart for details. The outpatient medications include lorazepam, Ambien, Neurontin, and Lamictal. REVIEW OF SYSTEMS: Otherwise negative. PHYSICAL EXAMINATION: GENERAL: A well-developed, well-nourished white woman, seen in her room with the nurse at bedside during the entire examination. HEENT: Normocephalic and atraumatic. Sclerae anicteric. NECK: Supple. Chest clear to auscultation. CARDIOVASCULAR: Revealed regular rate. ABDOMEN: Soft with good bowel sounds. There is no tenderness. EXTREMITIES: N edema. RECTAL: Exam with the nurse present showed only a few small marble like hard stools, but otherwise no rectal stool impaction. ASSESSMENT: The patient has chronic constipation, which has worsened with narcotics. I did not see any evidence of rectal stool impaction and the patient's abdomen is very soft and nondistended. Therefore, a significant degree of fecal loading is unlikely. A KUB can be done to evaluate the abdominal stool and also oral laxative will be given to wait for the result. This patient will be a good candidate for long-term Movantik to help with her bowel movements. In addition, the patient was advised to follow up as an outpatient for colonoscopy. Should the patient be stable with some bowel movement overnight, then she can be evaluated for possible discharge planning tomorrow. RECOMMENDATIONS: Per above discussion and per orders written in the chart. Thank you for asking me to participate in the care of this patient. Anant Mathew M.D. DR: VALERIA JOB#: [id number] CC: JESUSITA
[2017-07-31] MEDS: HYDROmorphone 1mg/ml Carpuject IVP PRN ×2 (02:54→09:44)
[2017-07-31 04:57] VITALS: BP 109/72
[2017-07-31 08:00] VITALS: BP 118/76
[2017-07-31] MEDS: Lactulose 20gm/30ml UDC ORAL SCH (08:35)
--- NOTE | 2017-08-03 11:53 | Discharge Summary ---
Discharge Summary Hospital Course Date of Admission Jul 28, 2017 at 20:57 Date of Discharge Jul 31, 2017 at 11:00 Admitting Diagnosis intractable abd pain/vomiting, constipation HPI Annalee Leonardo is a 52 year old female who was admitted on Jul 28, 2017 at 20:57 for Intractable Abdominal Pain/Vomiting/Constipation Hospital Course dc summary #[id number] Discharge Medications Continued Medications: Alprazolam* (Xanax*) 1 Mg Tablet 1 TAB PO TID, #15 TAB Take 1 tablet by mouth 3 times a day as needed for anxiety. Hydrocodone Bit/Acetaminophen 5-325* ([place] 5-325*) 1 Each Tablet 1 TAB ORAL Q6H PRN for For Pain, #15 TAB 0 Refills Lansoprazole* (Prevacid*) 30 Mg Capsule.dr 30 MG PO DAILY, #10 CAP Take 1 capsule by mouth every day. Ondansetron Odt* (Zofran Odt*) 4 Mg Tab.rapdis 4 MG ORAL Q6H PRN for Nausea & Vomiting, #30 TAB 0 Refills Ranitidine Hcl* (Zantac*) 150 Mg Tablet 150 MG ORAL TWICE A DAY, #30 TAB Zolpidem Tartrate* (Ambien*) 5 Mg Tablet 5 MG ORAL BEDTIME PRN for Insomnia for 10 Days, TAB Discontinued Medications: No Known Medications* (NKM - No Known Medications*) . 0 . Ondansetron Odt* (Zofran Odt*) 4 Mg Tab.rapdis 4 MG PO Q8H, #10 TAB Oseltamivir Phosphate (Tamiflu) 75 Mg Capsule 75 MG ORAL TWICE A DAY for 5 Days, CAP Ranitidine Hcl* (Zantac*) 150 Mg Tablet 150 MG PO BID Zolpidem Tartrate* (Ambien*) 10 Mg Tablet 10 MG PO HS Discharge Condition Upon Discharge: stable Discharge Disposition Patient was discharged to Home (01) Discharge Diagnoses: Discharge Instructions Discharge Instructions Special Instructions I have been assigned to complete a D/C Summary on this account. I was not involved in the patient management Kaykay Elam NP (Vanchtein) Aug 03, 2017 11:52
--- NOTE | 2017-08-04 04:15 | Discharge Summary 2 SIG ---
DATE OF ADMISSION: 07/28/2017 DATE OF DISCHARGE: 07/31/2017 REASON FOR ADMISSION: 52-year-old female with past medical history of anxiety, chronic opioid dependency, and pain as well as the hypersensitivity visceral syndrome and psychiatric issues, presented with abdominal pain and vomiting. The patient was seen in the emergency room in the past. Vital signs were stable. Potassium low - 3.0 which was replaced in ED, otherwise laboratory work was unremarkable. No leukocytosis. Stable hemoglobin and hematocrit. Stable electrolytes, renal parameters, LFT, and lipase. The patient was admitted for further care, management, and stabilization with diagnosis of chronic constipation, chronic opioid dependency, possible mild dehydration, hypokalemia, and anxiety. HOSPITAL COURSE: The patient was admitted. The patient was started on the IV fluids. Intensive bowel regimen was instituted. GI evaluation requested. Pain management implemented. Antiemetic provided as needed. Home medications were resumed. GI had seen and evaluated the patient. Abdominal exam was unremarkable. KUB revealed no evidence of significant stool retention. According to GI, the patient was a good candidate for Movantik. He also recommended GI prophylaxis and outpatient followup for colonoscopy. The patient tolerated diet, had bowel movement, pain free and was stable for discharge. FINAL DIAGNOSES: 1. Chronic constipation. 2. Chronic opioid dependency. 3. Possible mild dehydration, resolved. 4. Hypokalemia. 5. Anxiety. DISCHARGE MEDICATIONS: See medication reconciliation list. DISCHARGE INSTRUCTIONS: The patient was discharged home. Follow up with primary medical doctor. Follow up with GI for colonoscopy as advised. Corbin Emmanuel M.D. I have been assigned to dictate discharge summary on this account and I was not involved in the patient's management. Kaykay Elam (Vanchtein) N.P. DR: INGRID JOB#: [id number] CC: JESUSITA
== END 2017-07-31 11:00 | disposition home or self-care (01) | DRG 392 ==
LOC: EMR 20:15 → 4W 20:57 → EDBEDREQ 21:10 → 4W 07-29 09:25
DX: K59.03 Drug induced constipation (principal); F11.20 Opioid dependence, uncomplicated; F41.9 Anxiety disorder, unspecified; G89.29 Other chronic pain; T40.2X5A Adverse effect of other opioids, initial encounter; Z88.0 Allergy status to penicillin; E86.0 Dehydration; E87.6 Hypokalemia
CPT/HCPCS: 36415; 74018; 80053; 82150; 82248; 83690; 85025; 99285; J2405

== ENCOUNTER 2018-06-02 17:57 | Emergency (ER) | payer BC ==
[~2018-06-02] VITALS: Ht 172.7 cm; Wt 72.6 kg
[2018-06-02] MEDS ORDERED: Ketorolac 30mg Inj IM ONE (18:45)
--- NOTE | 2018-06-02 18:47 | Emergency Room Report ---
History of Present Illness General Chief Complaint: Headache Source: Patient Present Illness HPI 53-year-old female patient presents ER complaining of headache for the past 10 days. Reports headache is similar 10 sharp pain. Reports pain moves "all over her head", states that is currently in her bilateral ears and posterior head. Reports pain in neck the past day. Reports worse headache of life, reports history of migraine, states this "feels different". Reports history of bacterial and viral meningitis. denies fever, chest pain, shortness of breath, cough, allergies. reports took [place] yesterday for pain symptoms, also states took Benadryl and Zofran prior to arrival at ER.. Reports nausea during this time. Denies vomiting. Denies acute injury or trauma. Denies phonophobia or photophobia. Reports feels like "an ice pick is in my ear". denies syncope. denies vision loss. reports history of anxiety. States had a nervous breakdown last year at [facility]. Reports takes Motrin for anxiety symptoms. denies anxiety symptoms at this time. Denies nasal congestion or rhinorrhea. Denies eye pain. Allergies: Coded Allergies: PENICILLINS (Verified Allergy, 06/23/12) UNKNOWN Patient History Past Medical History: see triage record Now: No Reviewed Nursing Documentation: PMH: Agreed Nursing Documentation-PMH Hx Cancer: No Hx Gastrointestinal Problems: Yes Hx Neurological Problems: No Hx Meningitis: Yes - BACTERIAL, APPROX 15 YEARS AGO Review of Systems All Other Systems: negative except mentioned in HPI Physical Exam Vital Signs Date Time Temp Pulse Resp B/P (MAP) Pulse Ox O2 Delivery O2 Flow Rate FiO2 06/02/18 18:10 98.8 94 18 127/84 96 Room Air Sp02 EP Interpretation: reviewed, normal General Appearance: well appearing, no apparent distress, alert, GCS 15, non- toxic Head: normocephalic, atraumatic, other - no maxilary or frontal sinus TTP bilaterally Eyes: bilateral eye normal inspection, bilateral eye PERRL, bilateral eye EOMI , bilateral eye other - no nystagmus ENT: hearing grossly normal, normal pharynx, no angioedema, normal voice, TMs + canals normal, uvula midline, moist mucus membranes Neck: full range of motion Respiratory: lungs clear, normal breath sounds, no rhonchi, no respiratory distress, no accessory muscle use, no wheezing, speaking full sentences Cardiovascular #1: regular rate, rhythm, no edema Gastrointestinal: non tender, soft, no mass, non-distended, no guarding, no rebound Genitourinary: no CVA tenderness Musculoskeletal: back normal, digits/nails normal, gait/station normal, normal range of motion, non-tender Neurologic: alert, oriented x3, responsive, fruit cutter III-XII nml as tested, motor strength/tone normal, SLR negative, sensory intact, cerebellar normal, normal gait, speech normal, other - negative Kernig, negative Brudzinski Psychiatric: mood/affect normal Skin: no rash Lymphatic: no adenopathy Medical Decision Making PA Attestation Dr. Hillman is my supervising Physician whom patient management has been discussed with. Diagnostic Impression: Primary Impression: Headache ER Course Pt presents to ED c/o headache x6 days. DDX considered but are not limited to migraine, cluster ROSEN, tension ROESN, meningitis, ICH, meningitis, HTN, SAH, ICH, UTI, labyrinthitis, Mnire's, neoplasm, anxiety, otitis media, otitis externa, sinusitis. patient afebrile, negative Kernig, negative Brudzinski, low suspicion for meningitis. VITAL SIGNS are WNL, patient is afebrile ordered Reglan, Toradol. ER COURSE: vital signs stable, patient afebrile, physical exam benign, does not require labs at this time. MRI normal, negative for acute disease, SAH, neoplasm. UA negative for infection, low suspicion for UTI. Patient resting comfortably in bed, nontoxic appearing, smiling and laughing, symptoms improved on the ER, okay for outpatient treatment. Ambulating independently without difficulty. ER precautions given. Follow-up with primary care provider and discuss from neurology. Provided contact information for neurologist. Drink plenty of fluids. Avoid excessive eye stimulation. discharge patient home with Reglan medication, follow up with neurologist to discuss further treatment and evaluation of headache symptoms. DISCHARGE: -Rx provided Tylenol Rx provided for Reglan At this time pt is stable for d/c to home. Patient is resting comfortably, in no acute distress, nontoxic appearing, talking and smiling. Will provide with patient care instructions and any necessary prescriptions. Patient to take medication as instructed. Care plan and follow-up instructions provided. Patient questions asked and answered. Patient instructed to follow-up with primary care provider in the next 3 days and discuss further referral with PCP to neurologist. ER precautions given. Patient instructed to return to ER immediately for any new or worsening of symptoms including but not limited to fever, neck stiffness , vision changes, and neurological symptoms. - Please note that this Emergency Department Report was dictated using [employer] specialist technology software, occasionally this can lead to erroneous entry secondary to interpretation by the dictation equipment. Labs Test 06/02/18 19:50 Urine Color Pale yellow Urine Appearance Clear Urine pH 5 (4.5-8.0) Urine Specific [place] 1.010 (1.005-1.035) Urine Protein Negative (NEGATIVE) Urine Glucose (UA) Negative (NEGATIVE) Urine Ketones Negative (NEGATIVE) Urine Blood Negative (NEGATIVE) Urine Nitrite Negative (NEGATIVE) Urine Bilirubin Negative (NEGATIVE) Urine Urobilinogen Normal MG/DL (0.0-1.0) Urine Leukocyte Esterase Negative (NEGATIVE) CT/MRI/US Diagnostic Results CT/MRI/US Diagnostic Results : Imaging Test Ordered: MRI brain Impression normal Last Vital Signs Date Time Temp Pulse Resp B/P (MAP) Pulse Ox O2 Delivery O2 Flow Rate FiO2 06/02/18 18:10 98.8 94 18 127/84 96 Room Air Status: improved Disposition: HOME, SELF-CARE Condition: Stable Scripts Acetaminophen* (TYLENOL EXTRA STRENGTH*) 500 Mg Tablet 500 MG ORAL Q6H PRN for Mild Pain/Temp > 100.5, #30 TAB 0 Refills Prov: Mal Mendoza 06/02/18 Metoclopramide Hcl* (REGLAN*) 10 Mg Tablet 10 MG ORAL DAILY, #15 TAB Prov: Mal Mendoza 06/02/18 Patient Instructions: General Headache Without Cause Additional Instructions: Followup with primary care provider in 3 -5 days. Contact insurance to establish care. Follow with neurology for further evaluation and treatment of headache symptoms. Discuss further treatment and referral. Take medications as directed. Patient questions asked and answered. ER precautions given, patient instructed to return to ER immediately for any new or worsening of symptoms. Mal Mendoza Jun 02, 2018 18:47
[2018-06-02 19:10] VITALS: BP 137/78
[2018-06-02 19:59] LABS: APPEARANCE,URINE CLEAR; BILIRUBIN, URINE NEGATIVE (NEGATIVE); COLOR,URINE PALE YELLOW; GLUCOSE, URINE (UA) NEGATIVE (NEGATIVE); KETONES,URINE NEGATIVE (NEGATIVE); LEUKOCYTE ESTERASE ,URINE NEGATIVE (NEGATIVE); NITRITE,URINE NEGATIVE (NEGATIVE); PH,URINE 5 (4.5-8.0); PROTEIN,URINE NEGATIVE (NEGATIVE); UROBILINOGEN,URINE NORMAL MG/DL (0.0-1.0)
[2018-06-02 20:40] VITALS: BP 124/71
[2018-06-02] MEDS ORDERED: REGLAN10 MG ORAL (20:40)
[2018-06-02] MEDS ORDERED: TYLENOL EXTRA500 MG ORAL (20:40)
[2018-06-02 20:50] VITALS: BP 124/71
--- NOTE | 2018-06-03 08:58 | Diagnostic Imaging Report ---
Indication: Headache, vertigo, dizziness, bilateral ear pain Technique: sagittal T1 fast spin echo, axial T1 FLAIR, axial T2 FLAIR, axial T2 FS PROPELLER, axial T2* GRE, axial diffusion weighted images. ADC and exponential ADC maps generated Comparison: And CT dated 07/27/2017 Findings: No abnormal areas of restricted diffusion to suggest acute infarction. No acute hemorrhage or edema. No mass effect nor midline shift. The vascular flow voids are preserved.. Normal size ventricles and extra axial CSF spaces. Visualized orbits and sinuses are unremarkable. Impression: Negative This agrees with the preliminary interpretation provided overnight by Dr. Ga
== END 2018-06-02 20:58 | disposition home or self-care (01) ==
LOC: EMR 19:46
DX: R51 Headache (principal); Z88.0 Allergy status to penicillin
CPT/HCPCS: 70551; 81003; 96372; 99284; J1885

== ENCOUNTER 2018-10-08 19:30 | Inpatient (IN) | payer BC ==
[~2018-10-08] VITALS: Ht 172.7 cm; Wt 74.8 kg
[~2018-10-08 19:30] MED LIST changes: +REGLAN10 MG ORAL; +TYLENOL EXTRA500 MG ORAL
[2018-10-08 20:00] VITALS: BP 103/66
--- NOTE | 2018-10-08 20:04 | NUR ---
ED Nurse Note: patient walked in with a family member, complaining of left lower foot pain. Per patient she saw her Dr this Thursday and he told her that everything is OK. Since yesterday night patient is having severe pain 10/10, redness, and swelling, she can barely step on her foot. AAO x4, VSS at this time, skin is dry, intact, warm to touch.
[2018-10-08] MEDS ORDERED: HYDROmorphone 1mg/ml Carpuject IVP ONE ×2 (20:30→22:00)
[2018-10-08] MEDS ORDERED: HYDROcodone/Acetamin 5/325 tab ORAL ONE (20:30)
[2018-10-08 21:27] LABS: ANION GAP 12 mmol/L (5-15); BLOOD UREA NITROGEN 14 mg/dL (7-18); CALCIUM 8.6 MG/DL (8.5-10.1); CARBON DIOXIDE 25 MMOL/L (21-32); CHLORIDE 98 MMOL/L (98-107); CREATININE 0.8 MG/DL (0.55-1.30); POTASSIUM 4.1 MMOL/L (3.5-5.1); SODIUM 135 MMOL/L (136-145)
[2018-10-08 21:32] LABS: ALANINE AMINOTRANSFERASE 17 U/L (12-78); ALBUMIN 4.2 G/DL (3.4-5.0); ALBUMIN/GLOBULIN RATIO 1.3 (1.0-2.7); ALKALINE PHOSPHATASE 56 U/L (46-116); ASPARTATE AMINO TRANSFERASE 12 U/L (15-37); BILIRUBIN,TOTAL 0.5 MG/DL (0.2-1.0)
[2018-10-08] MEDS ORDERED: Vancomycin 1 GM in NS 275 ML IVPB ONE (21:45)
[2018-10-08] MEDS ORDERED: Zosyn 2.25gm inj IV ONE (21:45)
[2018-10-08 21:50] LABS: BASOPHILS % (AUTO) 0.8 % (0.0-2.0); EOSINOPHILS % (AUTO) 0.6 % (0.0-3.0); HEMATOCRIT 35.2 % (37.0-47.0); HEMOGLOBIN 12.1 G/DL (12.0-16.0); LYMPHOCYTES % (AUTO) 10.4 % (20.0-45.0); MEAN CORPUSCULAR VOLUME 99 FL (80-99); MONOCYTES % (AUTO) 8.3 % (1.0-10.0); PLATELET COUNT 157 K/UL (150-450); RED BLOOD COUNT 3.56 M/UL (4.20-5.40); RED CELL DISTRIBUTION WIDTH 10.7 % (11.6-14.8); WHITE BLOOD COUNT 8.6 K/UL (4.8-10.8)
--- NOTE | 2018-10-08 21:51 | Emergency Room Report ---
History of Present Illness General Chief Complaint: Pain Source: Patient (Mal Mendoza) Present Illness HPI 53-year-old female patient presents the ER complaining of left foot pain for the past day. Reports pain and swelling her left foot. Reports history of ankle surgery 1 month ago to repair torn ligaments and tendons and a fractured bone in her fifth Metatarsal. Reports had the sutures taken out on Thursday and told that it was healing properly. 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 Reports that that is when the pain and swelling began. Reports mild drainage from her surgical incision site. Denies fever, chest pain, shortness of breath. Reports is taking [place] for relief of pain symptoms, states has not helped to alleviate the pain. Reports pain with ambulation. Denies other aggravating or relieving factors. (Mal Mendoza) Allergies: Coded Allergies: PENICILLINS (Verified Allergy, 06/23/12) UNKNOWN Patient History Past Medical History: see triage record Last Menstrual Period: NONE Now: No Reviewed Nursing Documentation: PMH: Agreed; PSxH: Agreed (Mal Mendoza) Nursing Documentation-PMH Hx Cancer: No Hx Gastrointestinal Problems: Yes Hx Neurological Problems: Yes - meningitis (bacterial and viral) Hx Meningitis: Yes - BACTERIAL, APPROX 15 YEARS AGO (Mal Mendoza) Review of Systems All Other Systems: negative except mentioned in HPI (Mal Mendoza) Physical Exam Vital Signs Date Time Temp Pulse Resp B/P (MAP) Pulse Ox O2 Delivery O2 Flow Rate FiO2 10/08/18 19:39 99.5 114 16 103/66 96 Room Air Sp02 EP Interpretation: reviewed, normal General Appearance: well appearing, no apparent distress, alert, GCS 15, non- toxic Head: normocephalic, atraumatic Eyes: bilateral eye normal inspection, bilateral eye PERRL ENT: hearing grossly normal, normal pharynx, no angioedema, normal voice, uvula midline, moist mucus membranes Neck: full range of motion Respiratory: lungs clear, normal breath sounds, no rhonchi, no respiratory distress, no accessory muscle use, no wheezing, speaking full sentences Cardiovascular #1: regular rate, rhythm, no edema Cardiovascular #2: 2+ dorsalis pedis (R), 2+ dorsalis pedis (L) Musculoskeletal: back normal, digits/nails normal, gait/station normal, decreased range of motion - Secondary to pain, swelling, other - Cap refill less than 2 seconds, pain with movement of ankle joints, warmth to touch, tender Neurologic: alert, oriented x3, responsive, motor strength/tone normal, sensory intact Skin: no rash, other - Surgical incision noted on left lateral ankle, scabbing noted, pus draining from incision site, no bleeding (Mal Mendoza) Medical Decision Making PA Attestation Dr. Concepcion is my supervising Physician whom patient management has been discussed with. (Mal Mendoza) Diagnostic Impression: Primary Impression: Septic joint ER Course Pt. presents to the ED c/o left ankle pain and swelling. Ddx considered but are not limited to fracture, sprain, strain, contusion, dislocation, septic joint. Soft compartments, no pulselessness, no pallor, no paresthesias, low suspicion for compartment syndrome at this time. Vital signs: are WNL, pt. is afebrile Ordered X-ray and pain medication. ER COURSE Provided with Dilaudid pain medication. Physical exam consistent with likely septic joint, will order labs and admit patient. Ordered Zosyn and Rocephin to cover for possible infection. An X-ray of the left ankle shows no evidence of fracture or dislocation, fixation hardware noted, lateral ankle soft tissue swelling. CBC shows no elevation WBCs however left shift noted CMP unremarkable ESR WNL CRP elevated Spoke with patient's surgeon Dr. Tony Jim who operated on her one month ago , states that he would like her to be admitted to his service at [facility] where he has privileges. Attempting to get patient transferred to [facility]. Discussed patient care with my supervising physician physician Dr. Concepcion who agrees with assessment and treatment plan. - Please note that this Emergency Department Report was dictated using motifyrehabilitation program coordinator technology software, occasionally this can lead to erroneous entry secondary to interpretation by the dictation equipment. (Mal Mendoza) ER Course Patient signout to me. She had ankle surgery last month and now with possible infection. She was to be transferred to [facility] but they were no beds. She will be admitted here. I contacted Dr. Emmanuel for admission. (Hayden Huffman MD) Other X-Ray Diagnostic Results Other X-Ray Diagnostic Results : X-Ray ordered: Left ankle # of Views/Limited Vs Complete: 3 View Indication: Pain EP Interpretation: Yes PA Xray: Interpretation reviewed, by supervising MD, and agrees with findings. Interpretation: no dislocation, no fractures, other - Lateral ankle soft tissue swelling Impression: Other - Soft tissue swelling PA Scribe Text Tye Mendoza PA-C (Mal Mendoza P.A.) Last Vital Signs Date Time Temp Pulse Resp B/P (MAP) Pulse Ox O2 Delivery O2 Flow Rate FiO2 10/08/18 20:00 99.5 72 18 103/66 98 Room Air (Mal Mendoza P.A.) Disposition: ADMITTED INPATIENT Condition: Serious Referrals: NOT CHOSEN IPA/,REFERRING (PCP) Mal Mendoza P.Lisa Oct 08, 2018 21:51 Hayden Huffman MD Oct 09, 2018 01:03
[2018-10-08] MEDS ORDERED: cefTRIAXone 1 GM in NS 55 ML IVPB ONE (22:00)
--- NOTE | 2018-10-08 22:22 | NUR ---
S[poke with Helen at [facility], face sheet and dictation faxed to [phone] as requested. Helen will call me back with Room assignment.
[2018-10-09] MEDS ORDERED: Morphine Sulfate 4mg/ml Inj (IV USE ONLY) IVP PRN (01:15)
[2018-10-09] MEDS ORDERED: Ketorolac 30mg Inj IV PRN (01:15)
--- NOTE | 2018-10-09 01:54 | NUR ---
ED Nurse Note: Patient was admited to Med Surg. AAO x4, VSS at this time. Patient was transfered by ACLS protocol. All belongings were taken with the patient.
--- NOTE | 2018-10-09 02:00 | NUR ---
NURSE NOTES: Pt received awake, alert X 4, able to make needs known, c/o pain in her left foot, VS98.1, 89HR, 19rr, 110/65, 94 O2 with a pain level of 10, will contact MD for admission orders and give pain medication. Pt with belongings, signed the sheet stating she would keep her adler and jewelry at bedside.
--- NOTE | 2018-10-09 03:00 | NUR ---
NURSE NOTES: Left voicemail for Dr. Emmanuel to receive admission orders. Awaiting call back
[2018-10-09 04:00] VITALS: BP 120/72
[2018-10-09] MEDS ORDERED: Milk of Magnesia 30ml Ud ORAL PRN (06:15)
[2018-10-09] MEDS ORDERED: Zolpidem 5mg tab ORAL PRN (06:15)
[2018-10-09] MEDS ORDERED: BLISOVI 24 FE1 EACH PO (06:36)
[2018-10-09] MEDS ORDERED: LAMOTRIGINE200 MG PO (06:36)
[2018-10-09] MEDS ORDERED: chantix (06:36)
[2018-10-09] MEDS ORDERED: AMBIEN10 M1 ORAL (06:36)
[2018-10-09] MEDS ORDERED: valtrex (06:36)
[2018-10-09] MEDS ORDERED: ativan (06:36)
--- NOTE | 2018-10-09 07:15 | NUR ---
NURSE NOTES: Received orders from Dr. Emmanuel and input them in the system.
--- NOTE | 2018-10-09 07:15 | NUR ---
HAND-OFF: Report given to KAELYN Gonzalez.
[2018-10-09 08:00] VITALS: BP 92/69
[2018-10-09] MEDS ORDERED: HYDROcodone/Acetamin 5/325 tab ORAL PRN (08:30)
[2018-10-09] MEDS: HYDROmorphone 1mg/ml Carpuject IVP PRN ×3 (08:56→16:15)
[2018-10-09] MEDS ORDERED: Piperacillin/Tazobactam 3.375 GM in NS 110 ML IVPB SCH (09:00)
[2018-10-09] MEDS: Heparin 5000 units/ml inj SUBQ SCH ×2 (09:07→22:05)
[2018-10-09] MEDS: Vancomycin 1gm/D5W 275ml IVPB SCH ×4 (10:03→21:55)
--- NOTE | 2018-10-09 10:15 | NUR ---
NURSE NOTES: PT AXOX4, STATES PAIN SHARP CONSTANT PAIN 10/10 OF LEFT ANKLE. RN ADMINISTERED PRN DILAUDID 1MG PRN IVP ORDERED. PT EDUCATED ON SIDE EFFECTS OF NARCOTICS AND FALL PRECAUTIONS. PT VERBALIZED UNDERSTANDING. PT HAS IPHONE AND 2 CRUTCHES AT BEDSIDE. CALL LIGHT WITHIN REACH, BED IN LOWEST POSITION WITH BEDSIDE RAILS X2 RAISED. BED ALARM ON. WILL CONTINUE TO MONITOR.
[2018-10-09 12:00] VITALS: BP 104/59
--- NOTE | 2018-10-09 12:51 | History & Physical ---
History and Physical History & Physicial 53-year-old female patient presents with left foot pain for the past one day. Reports pain and swelling and redness her left foot. Reports history of ankle surgery 1 month ago to repair torn ligaments and tendons and a fractured bone in her fifth Metatarsal. Reports that the sutures were removed 1 week ago and told that it was healing properly. Currently with mild drainage from her surgical incision site. Denies fever, chest pain, shortness of breath. She has been taking for [place] for relief of pain symptoms, but has not helped. Has pain with ambulation. PMH 1. Chronic constipation. 2. Chronic opioid dependency. 3. Possible mild dehydration, resolved. 4. Hypokalemia. 5. Anxiety. MEDS and ALLERGIES noted and reviewed SOCIAL HISTORY nonsmoker PHYSICAL WDWN NAD clear breath sounds bilaterally without rhonchi or wheeze [id number] without MRG NABS nontender no HSM no CC ankle with swelling and reduced ROM nonfocal Labs Test 10/08/18 21:05 White Blood Count 8.6 K/UL (4.8-10.8) Red Blood Count 3.56 M/UL (4.20-5.40) Hemoglobin 12.1 G/DL (12.0-16.0) Hematocrit 35.2 % (37.0-47.0) Mean Corpuscular Volume 99 FL (80-99) Mean Corpuscular Hemoglobin 34.1 PG (27.0-31.0) Mean Corpuscular Hemoglobin Concent 34.4 G/DL (32.0-36.0) Red Cell Distribution Width 10.7 % (11.6-14.8) Platelet Count 157 K/UL (150-450) Mean Platelet Volume 8.1 FL (6.5-10.1) Neutrophils (%) (Auto) 80.0 % (45.0-75.0) Lymphocytes (%) (Auto) 10.4 % (20.0-45.0) Monocytes (%) (Auto) 8.3 % (1.0-10.0) Eosinophils (%) (Auto) 0.6 % (0.0-3.0) Basophils (%) (Auto) 0.8 % (0.0-2.0) Erythrocyte Sedimentation Rate 19 MM/HR (0-30) Sodium Level 135 MMOL/L (136-145) Potassium Level 4.1 MMOL/L (3.5-5.1) Chloride Level 98 MMOL/L (98-107) Carbon Dioxide Level 25 MMOL/L (21-32) Anion Gap 12 mmol/L (5-15) Blood Urea Nitrogen 14 mg/dL (7-18) Creatinine 0.8 MG/DL (0.55-1.30) Estimat Glomerular Filtration Rate > 60 mL/min (>60) Glucose Level 93 MG/DL (74-106) Calcium Level 8.6 MG/DL (8.5-10.1) Total Bilirubin 0.5 MG/DL (0.2-1.0) Aspartate Amino Transf (AST/SGOT) 12 U/L (15-37) Alanine Aminotransferase (ALT/SGPT) 17 U/L (12-78) Alkaline Phosphatase 56 U/L (46-116) C-Reactive Protein, Quantitative 4.6 mg/dL (0.00-0.90) Total Protein 7.5 G/DL (6.4-8.2) Albumin 4.2 G/DL (3.4-5.0) Globulin 3.3 g/dL Albumin/Globulin Ratio 1.3 (1.0-2.7) IMPRESSION recent ankle surgery possible septic joint chronic opiod dependency pain PLAN IV antibiotics imaging ID and ortho possible transfer to original ortho if bed available pain control impression, plan, and exam edited and reviewed in detail care discussed with Corbin Wells MD Oct 09, 2018 12:51
--- NOTE | 2018-10-09 13:03 | NUR ---
NURSE NOTES: PT'S SURGEON, DR SHASHA ISABEL, AT BEDSIDE WITH PT. BOTH REQUEST FOR TRANSFER TO [facility] WHERE DR ISABEL HAS PRIVILEGES. RN RELAYED REQUEST TO DR LOPEZ WHO GAVE ORDER TO TRANSFER TO [facility]. RN ATTEMPTED TO REACH BLUEPRINTING AND PHOTOCOPY SUPERVISOR. PER HOUSE SUP, JENNIE IS BLUEPRINTING AND PHOTOCOPY SUPERVISOR TODAY AND RN OVERHEAD PAGED FOR BLUEPRINTING AND PHOTOCOPY SUPERVISOR, NO CALL RECEIVED. PER HOUSE SUP, BLUEPRINTING AND PHOTOCOPY SUPERVISOR MAY BE ON LUNCH. RN WILL ATTEMPT TO REACH BLUEPRINTING AND PHOTOCOPY SUPERVISOR AGAIN.
--- NOTE | 2018-10-09 14:04 | NUR ---
NURSE NOTES: UNABLE TO REACH WIRELESS RETAIL MANAGER. YUE LAW MADE AWARE. PER YUE LAW, RN NEEDS TO CONTACT [facility]. RN SPOKE TO YUE PLASCENCIA AT [facility] AND MADE AWARE OF TRANSFER ORDERS. PER TAHIS, SHE WILL CALL RN BACK.
--- NOTE | 2018-10-09 15:09 | NUR ---
NURSE NOTES: PER PT, HER AND DR ISABEL WORKING ON TRANSFER TO [facility]. PT REQUESTS FOR TRANSFER TO [facility]. DR LOPEZ MADE AWARE AND OK TO CHANGE TRANSFER ORDER TO [facility]. RN LEFT MESSAGE FOR [facility] SUPERVISOR REGARDING TRANSFER ORDER. AWAITING CALL BACK.
--- NOTE | 2018-10-09 15:43 | NUR ---
NURSE NOTES: RN SPOKE TO JENNIE, MOPHEAD TRIMMER AND WRAPPER, AND MADE AWARE OF TRANSFER ORDER TO [facility].
--- NOTE | 2018-10-09 15:53 | NUR ---
CASE MANAGEMENT: INITIAL REVIEW 53 YO F PRESENTED TO OUR ED FROM HOME CC: LEFT FOOT PAIN PMHx: SI:SEPTIC JOINT IS:DILAUDID IV X1 NS B PATIENT ADMITTED TO MED/SURG 10/08/2018 @ 2113 DCP: PATIENT TO BE DISCHARGED TO HOME ONCE MEDICALLY CLEARED. PLAN OF CARE:
--- NOTE | 2018-10-09 15:55 | NUR ---
CASE MANAGEMENT: INITIAL REVIEW 53 YO F PRESENTED TO OUR ED FROM HOME CC: LEFT FOOT PAIN PMHx: MENINGITIS SI:SEPTIC JOINT T 99.5 HR 114 RR 16 B/P 103/66 SATS 96% ON RA NA 135 AST 12 IS:DILAUDID IV X1 NS BOLUS X1 ZOFRAN IV X1 PATIENT ADMITTED TO MED/SURG 10/08/2018 @ 6605 DCP: PATIENT TO BE DISCHARGED TO HOME ONCE MEDICALLY CLEARED. PLAN OF CARE: MRI ANKLE LATERAL TRANSFER Addendum: 10/09/18 at 1649 by Selena Love INTERQUAL MET
[2018-10-09 15:58] VITALS: BP 111/64
--- NOTE | 2018-10-09 18:32 | NUR ---
NURSE NOTES: PT REQUESTS TO HAVE DILAUDID 1MG EARLIER THAN 3 HOUR INTERVAL PER ORDER. RN EDUCATED PT ON PRN SCHEDULE BUT CONTINUES TO REQUEST FOR MEDICATION SOONER. RN LEFT MESSAGE FOR DR LOPEZ REGARDING PT'S REQUEST.
[2018-10-09] MEDS ORDERED: HYDROmorphone 1mg/ml Carpuject IVP PRN (18:45)
--- NOTE | 2018-10-09 19:27 | NUR ---
HAND-OFF: Report given to Donald ADAIR RN.
--- NOTE | 2018-10-09 19:27 | NUR ---
NURSE NOTES: Pt received awake but getting ready to go to sleep, able to make needs known, call light within reach, bed in lowest position, offered her a pillow for her left foot but pt stated she does not need it. will continue to monitor.
--- NOTE | 2018-10-09 19:39 | NUR ---
NURSE NOTES: Dr Guillen spoke with patient about possible surgery by him tomorrow in which she will have to be NPO after breakfast. But still awaiting on patient to decide what option she will take.
[2018-10-09 20:00] VITALS: BP 126/83
[2018-10-09] MEDS ORDERED: cefTRIAXone 1 GM in D5W 55 ML IVPB SCH (23:00)
[2018-10-10] VITALS: BP 125/75
--- NOTE | 2018-10-10 03:00 | Consultation ---
DATE OF CONSULTATION: 10/09/2018 ORTHOPEDIC CONSULTATION HISTORY OF PRESENT ILLNESS: The patient is a pleasant female, who underwent a left lateral ligament stabilization procedure approximately a month ago. She subsequently developed pain and swelling approximately 3 days ago. She has been in the hospital for 2 days and progressive ankle pain and difficulty ambulating. Orthopedic consultation was obtained for further care and recommendation earlier today. PAST MEDICAL HISTORY: Reviewed from the intake chart. PAST SURGICAL HISTORY: Reviewed from the intake chart. MEDICATIONS: Reviewed from the intake chart. PHYSICAL EXAMINATION: GENERAL: Examination shows the patient is somewhat pretty uncomfortable. She is alert and oriented. VITAL SIGNS: Afebrile. Stable vital signs. EXTREMITIES: Left lateral ankle incision has some serous drainage. There is some erythema along the lateral dorsum of the foot. Posterior calf is soft. NEUROVASCULAR: Normal. ASSESSMENT: 1. Status post possible left lateral ankle ligament reconstruction. 2. Left ankle aseptic joint. DISCUSSION: At this point, she has had continued pain despite conservative treatment. I think, at this point, what I recommend is consideration for I and D of the left ankle most likely based on intraoperative findings. The infection may not be superficial, may extend into the ankle joint and if it extended to the ankle joint, that a formal arthrotomy would also be necessary. If the infection is deep, then 6 weeks of IV antibiotics would also be necessary. I discussed my findings and recommendations with the patient. The patient is awaiting to be transferred to [facility] so that the primary surgery can take of her. I discussed with her that, at this point, we can wait for a little bit longer, but not much longer. We need to either proceed with surgery or have her transferred over. I am going to give her next 12 hours to make determination. At that point, if she wants to proceed with surgery, we will proceed with surgery tomorrow. Risks, limitations, expectations, and complications of procedure were discussed in detail. All questions addressed. Heath Guillen M.D. DR: SARAH JOB#: [id number] CC:
[2018-10-10 04:00] VITALS: BP 104/65
--- NOTE | 2018-10-10 07:14 | NUR ---
HAND-OFF: Report given to KAELYN Wallace. Endorsed that pt will be picking her up to tranport her to [facility], pt will be leaving AM.
[2018-10-10 08:00] VITALS: BP 147/65
[2018-10-10] MEDS: Heparin 5000 units/ml inj SUBQ SCH (08:07)
--- NOTE | 2018-10-10 09:04 | NUR ---
NURSE NOTES: Received patient awake, alert. complaining of pain on foot and headache, 01/12. will give due pain meds. All needs attended. Call light made within reach. at bedside.
[2018-10-10 09:21] LABS: HEMOGLOBIN 11.5 G/DL (12.0-16.0); MEAN CORPUSCULAR VOLUME 101 FL (80-99); PLATELET COUNT 115 K/UL (150-450); RED BLOOD COUNT 3.48 M/UL (4.20-5.40); RED CELL DISTRIBUTION WIDTH 10.9 % (11.6-14.8); WHITE BLOOD COUNT 7.7 K/UL (4.8-10.8)
[2018-10-10 09:33] LABS: ANION GAP 10 mmol/L (5-15); BLOOD UREA NITROGEN 5 mg/dL (7-18); CALCIUM 8.3 MG/DL (8.5-10.1); CARBON DIOXIDE 24 MMOL/L (21-32); CHLORIDE 102 MMOL/L (98-107); CREATININE 0.7 MG/DL (0.55-1.30); POTASSIUM 3.7 MMOL/L (3.5-5.1); SODIUM 136 MMOL/L (136-145)
--- NOTE | 2018-10-10 09:43 | NUR ---
NURSE NOTES: Patient alert and oriented. left AMA for foot surgery that will be done in [place] by patient's surgeon. Dr. Jim. Dr. Emmanuel aware. IV line removed. Belongings with patient. Accompanied patient to car.
--- NOTE | 2018-10-10 22:15 | Progress Note ---
DATE: 10/10/2018 SUBJECTIVE: The patient had no issues overnight. Still has pain and discomfort in the left ankle. OBJECTIVE: GENERAL: The patient is resting comfortably on the bed, in moderate discomfort. VITAL SIGNS: Afebrile. Stable vital signs. EXTREMITIES: Left ankle examination shows it is intact. There is serous drainage and erythema, and pitting edema in the left foot. ASSESSMENT: 1. Status post left lateral ankle ligament reconstruction surgery. 2. Left ankle septic joint, possible superficial abscess. DISCUSSION: At this point, she does need surgery. The patient really wants her care to be taken. She wants to be continued care under her primary surgeon, Dr. Josue. At this point, the patient is not sure if she will be transferred to [place] with surgery has no privileges. She discussed possibilities signing out AMA and ER for admission and treatment with her primary surgeon, which is reasonable. Risks, limitations, expectations, complication discussed in detail. We discussed with her, for some reason if she changed her mind and we can proceed with surgery later on tonight. She is going to think about her options and let me know. Heath Guillen M.D. DR: SUELLEN JOB#: [id number] CC: JESUSITA
--- NOTE | 2018-10-12 10:05 | Discharge Summary ---
Discharge Summary Discharge Summary _ DATE OF ADMISSION: 10/08/2018 DATE OF DISCHARGE: 10/10/2018 Patient left AGAINST MEDICAL ADVICE REASON FOR ADMISSION: 53 years old female with past medical history of recent left ankle ligament reconstruction, rheumatoid arthritis, anemia, anxiety, uterine fibroids status post surgery, status post back surgery , presented to the emergency department complaining of left foot/ankle pain for 1 day. She reported pain and swelling on the left ankle. Patient reported recent history of left ankle surgery , a month ago to repair torn ligament and tendon and a fractured bone in her fifth metatarsal. Sutures were taken out on Thursday, and she was told that it was healing properly. 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 Patient reported that she overexerted her foot/ankle, pain and swelling started afterwards. Patient reported mild drainage from surgical incision site. She denied fever , chills, chest pain , shortness of breath. Pain was worse with ambulation. Upon evaluation patient was tachycardic, with low-grade fever. Stat radiology report revealed no evidence of acute fracture or dislocation. Fixation hardware was noted along with a lateral ankle soft tissue swelling. Laboratory workup revealed no leukocytosis, stable hemoglobin and hematocrit Stable ESR. Stable electrolytes, renal parameters. Elevated CRP 4.6. In emergency department patient was provided with analgesia and was started on empiric antibiotic for possible septic joint. Patient was admitted for further management CONSULTANTS: orthopedic surgeon Dr. Guillen [facility] COURSE: Patient admitted to medical surgical floor. Infectious disease and orthopedic surgery consults were requested. Patient started on broad-spectrum antibiotics. Pain management was addressed. DVT and GI prophylaxis provided. Orthopedic surgeon seen and evaluated patient . Surgeon recommended consider incision and drainage of the left ankle wound . Per surgeon infection may not be superficial and may extend in the ankle joint , and in that case a formal arthrotomy would be necessarily If the infection is deep , then 6 weeks of IV antibiotic would be necessary. Patient was waiting for transfer to [facility] for primary surgeon for further management. Per orthopedic surgeon , patient could not wait a long time. Patient was explained in detail by orthopedic surgeon, , that she either will need to transfer soon or proceed with surgery. Patient desired to continue care under her primary surgeon Dr. Jim. Patient decided to sign AGAINST MEDICAL ADVICE. The risks and consequences of signing AGAINST MEDICAL ADVICE were discussed with patient in detail. Patient verbalized understanding, nevertheless signed AMA form and left. FINAL DIAGNOSES: Status post left lateral ankle ligament reconstruction surgery Left ankle septic joint, possible superficial abscess I have been assigned to dictate discharge summary for this account. I was not involved in the patient's management. Kaykay Elam NP Oct 12, 2018 10:05
== END 2018-10-10 09:40 | disposition left against medical advice (07) | DRG 560 ==
LOC: EMR 20:00 → 4E 21:13 → EDBEDREQ 10-09 00:52 → 4E 10-09 01:02
DX: T84.59XA Infection and inflammatory reaction due to other internal joint prosthesis, initial encounter (principal); L02.416 Cutaneous abscess of left lower limb; F11.20 Opioid dependence, uncomplicated; Y83.4 Other reconstructive surgery as the cause of abnormal reaction of the patient, or of later complication, without mention of misadventure at the time of the procedure
CPT/HCPCS: 36415; 80048; 80053; 80202; 85007; 85025; 85651; 86140; 87081; 96361; 96365; 96367; 96375; 96376; 99285; J2405